=== PATIENT | male | born 2005 | race Two or more races ===

== ENCOUNTER 2024-12-07 10:55 | Day surgery (SDC) | payer OTHER ==
[~2024-12-07] VITALS: Ht 172.7 cm; Wt 59.9 kg
[~2024-12-07 10:55] MED LIST: VITAD400CA PO
[2024-12-07] MEDS ORDERED: LR 1,000 ML IV SCH ×2 (11:00→13:05)
[2024-12-07] MEDS ORDERED: fentaNYL 100 MCG/2 ML INJECTION As Ordered ONE (12:01)
[2024-12-07] MEDS ORDERED: ONDANSETRON 4MG 2ML VIAL As Ordered ONE (12:01)
[2024-12-07] MEDS ORDERED: propofoL 200 MG/20 ML VIAL As Ordered ONE (12:01)
[2024-12-07] MEDS ORDERED: ACETAMINOPHEN 1000MG/100ML IV BAG As Ordered ONE (12:01)
[2024-12-07] MEDS ORDERED: LIDOCAINE 2% 100MG/5ML SDV (FOR ANES.) As Ordered ONE (12:01)
[2024-12-07] MEDS ORDERED: MIDAZOLAM INJ 2MG/2ML VIAL As Ordered ONE (12:01)
[2024-12-07] MEDS: PHENYLEPHRINE REG/STR 0.5% NASAL SPRAY 15 ML As Ordered ONE (12:50)
[2024-12-07] MEDS: CIPRODEX OTIC SUSP 7.5ML As Ordered ONE (12:50)
[2024-12-07] MEDS ORDERED: HYDROMORPHONE HCL 0.5 MG/ 0.5 ML SYRINGE IV PRN (13:05)
[2024-12-07] MEDS ORDERED: fentaNYL 100 MCG/2 ML INJECTION IV PRN (13:05)
[2024-12-07] MEDS ORDERED: oxyCODONE 5MG TAB PO PRN (13:05)
[2024-12-07] MEDS ORDERED: ONDANSETRON 4MG 2ML VIAL IV PRN (13:05)
[2024-12-07 13:40] VITALS: BP 131/84; TEMP 97.5; O2SAT 99
== END 2024-12-07 13:53 | disposition home or self-care (01) ==
LOC: M SDC 10:55
PROVIDERS: ATTEND Otolaryngology
DX: H90.12 Conductive hearing loss, unilateral, left ear, with unrestricted hearing on the contralateral side (principal); H65.22 Chronic serous otitis media, left ear; K58.8 Other irritable bowel syndrome
CPT/HCPCS: 69436; J0131; J1100; J2250; J2405; J3010